=== PATIENT | male | born 1950 | race Hispanic/Latino ===

== ENCOUNTER 2016-12-18 05:35 | Inpatient (IN) | payer MEDICARE ==
--- NOTE | 2016-12-17 10:37 | Anesthesia Consultation ---
Anesthesia Consult and Med Hx Date of service: 12/17/16 - Airway Anesthetic Teeth Evaluation: Dentures (upper and lower) ROM Head & Neck: Adequate Mental/Hyoid Distance: Adequate Mallampati Class: Class II Intubation Access Assessment: Probably Good - Pulmonary Exam CTA: Yes - Cardiac Exam Cardiac Exam: RRR - Pre-Operative Health Status ASA Pre-Surgery Classification: ASA3 Proposed Anesthetic Plan: General - Pulmonary Hx Smoking: Yes (former) Hx Asthma: No COPD: No Hx Pneumonia: No - Cardiovascular System Hx Hypertension: Yes Hx Heart Attack/AMI: No Hx Pacemaker: No Hx Internal Defibrillator: No - Central Nervous System Hx Seizures: Yes ( 08/2016) 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
[2016-12-17 11:00] LABS: Hematocrit 41.2 % (35.5-45.6); Mean Corpuscular HGB Conc 34 % (32-34); Mean Corpuscular Hemoglobin 30 pg (28-32); Mean Corpuscular Volume 88 fl (84-94); Platelet Count 219 K/mm3 (140-440); Red Blood Count 4.66 M/mm3 (3.65-5.03); Red Cell Distribution Width 13.2 % (13.2-15.2); White Blood Count 7.6 K/mm3 (4.5-11.0)
[2016-12-18] MEDS ORDERED: NACL 0.9% 1000 ML 1,000 ML IV SCH ×2 (06:00→12:00)
[2016-12-18] MEDS ORDERED: ANCEF/STERILE WATER 2 GM/20 ML 2 GM/20 ML SYRINGE IV NR (06:00)
[2016-12-18] MEDS ORDERED: NACL BACTERIOSTATIC INFILTRATI ONE (06:28)
[2016-12-18] MEDS ORDERED: AMIDATE IV ONE (07:21)
[2016-12-18] MEDS ORDERED: XYLOCAINE MPF 2% ONE (07:21)
[2016-12-18] MEDS ORDERED: ZEMURON IV ONE ×2 (07:21→09:57)
[2016-12-18] MEDS ORDERED: DIPRIVAN 10 MG/ML IV ONE ×6 (07:23→10:37)
[2016-12-18] MEDS ORDERED: SUBLIMAZE ONE ×2 (07:23→09:51)
[2016-12-18] MEDS ORDERED: KEPPRA PO ONE (07:30)
[2016-12-18] MEDS ORDERED: XYLOCAINE 1% 20 mL ONE (07:37)
[2016-12-18] MEDS ORDERED: NACL 0.9% 500 ML 500 ML ONE (07:40)
[2016-12-18] MEDS ORDERED: PROTAMINE SULFATE ONE (07:40)
[2016-12-18] MEDS ORDERED: MARCAINE 0.25% INFILTRATI ONE ×3 (07:40→11:25)
[2016-12-18] MEDS ORDERED: HEPARIN 10,000 UNITS/10 ML ONE (07:40)
[2016-12-18] MEDS ORDERED: PAPAVERINE ONE (07:40)
[2016-12-18] MEDS ORDERED: XYLOCAINE 1% MPF 5 mL ONE (07:52)
[2016-12-18] MEDS ORDERED: VERSED IV NR (08:00)
[2016-12-18] MEDS ORDERED: ePHEDrine SULFATE ONE (08:23)
[2016-12-18] MEDS ORDERED: HEPARIN 10,000 UNITS/10 ML 2,000 UNIT in NACL 0.9% 500 ML 500 ML IR ONE (09:13)
[2016-12-18] MEDS ORDERED: NACL 0.9% IR ONE (09:13)
[2016-12-18] MEDS ORDERED: ROBINUL ONE ×2 (09:52→12:21)
--- NOTE | 2016-12-18 10:14 | Admit Criteria Form ---
Admission Criteria Documentation: AMBULATORY SURGERY EXCEPTION CRITERIA Ambulatory Surgery Exception Criteria ( Place 'X' for any and all applicable criteria): Surgery or procedure performed on ambulatory basis may require inpatient stay for[A] ANY ONE of the following(1)(2)(3)(4)(5)(6)(7)(8)(9): [X] I. A preoperative situation, condition, or finding that warrants inpatient stay as indicated by ANY ONE of the following: [] a) Inpatient care needed because of severity of a disease or condition rather than the surgery (eg, severe cardiac or respiratory disease, severe infection) (15) (16 ) (17) (18) [] b) Emergent procedure (eg, angioplasty for acute ischemia)(19) [] c) Complex surgical approach or situation as indicated by ANY ONE of the following(3): [] i) Open approach needed instead of usual endoscopic, transcatheter, or other less invasive procedure [] ii) Difficult approach because of previous operation [] iii) Airway monitoring required after open neck procedures(20)(21) [] iv) Large mass requiring unusually extensive dissection [] v) Additional complicating feature requiring inpatient care (eg, drain management)(22(23): [X] d) Major surgery in a pt with high anesthetic risk as indicated by ANY ONE of the following (2)(3)(5)(7)(8): [X] i) ASA risk class III or higher (severe systemic disease impairing function) [D] [] ii) Advanced age (eg, older than 85 years)(14)(24) [] iii) Symptomatic heart failure(25) [] iv) Symptomatic asthma or COPD(8)(21) [] v) Morbid obesity with hemodynamic or respiratory problems(20)( 21)(26)(27) [] vi) Obstructive sleep apnea(20)(21) [] vii) Former premature infants who are younger than 60 weeks [] viii) High risk for severe postoperative abnormalities (eg, severe postoperative hypocalcemia after parathyroidectomy for severe hyperparathyroidism)(27)( 28) [] ix) Unstable angina(25) [] e) Drug-related risk requiring inpatient stay as indicated by ANY ONE of the following(5)(10)(14)(32)(33) [] i) Procedure requires discontinuing drugs or other therapy (eg , antiarrhythmic medication, antiseizure medication), which necessitates inpatient observation or treatment.(18)(31) [] ii) Major surgery and high risk drug use as indicated by ANY ONE of the following: [] 1) Active abuse of cocaine or similar drug [] 2) Monoamine oxidase inhibitor use [] 3) Other drug identified as posing risk [] f) Inadequate outpatient care situation as indicated by ANY ONE of the following(5)(10)(14)(32)(33) [] i) Patient lives remote from medical facility and procedure has urgent complication potential, and temporary nearby residence cannot be arranged [] ii) Patient will have postprocedure incapacitation and inadequate assistance at home, or alternative level of care cannot be arranged. [] iii) Patient will have long general anesthesia or procedure side effect resolution time, and competent person to stay with patient on first postoperative night at home or alternative level of care cannot be arranged. []iv) Other inadequate outpatient situation that cannot be handled by other means [] II. A perioperative event, condition, or finding that warrants inpatient stay as indicated by ANY ONE of the following (1)(2)(3): [] a) Inadequate physiologic recovery: cardiovascular, respiratory, or hemodynamic status not normal or near preoperative baseline(18) [] b) Hemodynamic instability [] c) Patient not alert with near normal or baseline mental status [] d) Temperature not normal or as expected and not appropriate for outpatient treatment of condition [] e) Ambulatory or appropriate activity level status not yet achieved post procedure [E](34)(35)(36) [] f) Operative site not appropriate (eg, unexpected or excessive drainage or bleeding) [] g) Postoperative effects not resolved or adequately managed (eg, significant pain or vomiting not appropriate for outpatient or next level of care)(10)(12) [] h) Complicating features requiring inpatient care as indicated by ANY ONE of the following(37): [] i) Severe complications of procedure (eg, bowel injury, airway compromise, vascular injury,severe hemorrhage) [] ii) Extensive (eg, dissection far beyond usual scope of procedure ) or prolonged (eg, 120 minutes beyond usual) surgery needed requiring inpatient postoperative care [] iii) Conversion to an open or complex procedure that requires inpatient care (eg, open vs laparoscopic cholecystectomy, abdominal vs vaginal hysterectomy)(38) [] iv) Comorbid condition or test result identified during or post procedure that requires inpatient care (7) [] v) Malignant hyperthermia(30) [] vi) Other complicating feature requiring inpatient care(22)(23) Inpatient stay may be needed until ALL of the following are present (1)(2)(3)(4) (5)(6)(10)(14)(33)(40): []a) Physiologic recovery: cardiovascular, respiratory, and hemodynamic status normal or near preoperative baseline []b) Hemodynamic stability []c) Patient alert, with near normal or baseline mental status []d) Temperature appropriate: patient afebrile or temperature appropriate for outpt treatment of condition []e) Activity level appropriate: ambulatory or appropriate activity level post procedure []f) Operative site appropriate as indicated by ALL of the following: []i) Site dry or with expected drainage []ii) Any blood noted is as expected for procedure. []g) Postoperative effects resolved or managed as indicated by ALL of the following: []i) Pain management appropriate for outpatient (or next level of) care(10) []ii) Minimal nausea and vomiting: if present, successfully treated with oral medication(12) []iii) Headache, dizziness, or drowsiness (if present) are mild. []h) Voiding status acceptable as indicated by ANY ONE of the following: []i) Voiding spontaneously []ii) No voiding but instructions given for follow-up in 6 to 8 hours []iii) Urinary catheter in place, and instructions given for follow-up []i) Complicating features requiring inpatient care manageable at a lower level of care(37) []j) Comorbid conditions manageable at a lower level of care(37) The original [employer] content created by [employer] has been revised. The portions of the content which have been revised are identified through the use of italic text or in bold, and [facility] [employer] has neither reviewed nor approved the modified material. All other unmodified content is copyright [employer]. Please see references footnoted in the original [employer] edition 2016 Admission Criteria Met: Yes
[2016-12-18] MEDS ORDERED: ZOFRAN ONE (11:33)
--- NOTE | 2016-12-18 11:55 | Operative Report ---
Operative Report Operative Report: Date of procedure: 12/18/2016 Pre-operative diagnosis: left internal carotid artery stenosis Post-operative diagnosis: Same Procedure name(s): 1. Left carotid endarterectomy with bovine pericardial patch angioplasty 2. Completion duplex ultrasound Surgeon: Ayaan Aguilar MD, RPVI Lapidary Apprentice: FEDE Barth Anesthesia: Gen. EEG and SSEP's monitoring Findings 1. High grade long left ICA stenosis. 2. Necrotic ulcerated lesion with combination of altered fresh thrombus. 3. EEGs and SSEPs remained stable throughout the entire procedure with no changes. 4. Complete resolution of the stenosis was normalization of ICA velocity. 5. No loose debris or intimal flap on the completion duplex. 6. Patient woke up moving all 4 extremities. Specimens: Carotid plaque EBL: 125 mL Drains: #10 CHELITA drain in the left neck. IV fluids: 1250 mL Urine output: 275 mL Disposition: The recovery Indications: Left ICA stenosis Patient was brought to the operating room and laid on the operating room table in supine position. After general endotracheal anesthesia was achieved and EEG leads placed patient was positioned for the left carotid endarterectomy. Patient was prepped and draped in usual sterile fashion. An incision along the sternocleidomastoid muscle was made using #15 blade. Subcutaneous tissue was divided with Bovie electrocautery. The platysma was divided with Bovie electrocautery. The external jugular vein was divided between 2-0 silk ties. The sternocleidomastoid muscle was dissected and retracted laterally. The internal jugular vein was dissected the facial vein was divided between 3-0 silk ties and it was retracted laterally. The common carotid artery was dissected free and encircled with a Eyad tourniquet. The dissection continued cephalad. The superior thyroid and external carotid arteries were dissected free and encircled with 2-0 silk tie and small vessel loop respectively. The internal carotid artery was dissected distal to the stenosis and encircled with a vessel loop. Patient received 6000 units of heparin. After 3 minutes the vessels were occluded. The internal carotid artery was occluded first. There were no changes in the EEG is after 3 minutes The endarterectomy was performed using a [place] elevator. At the distal end of the arteriotomy that appeared that the plaque didn't end. The internal carotid artery was dissected further distally and the posterior belly of the digastric muscle had to be divided. The internal carotid was opened further and plaque was then traced up higher. A long portion of the internal carotid artery appeared to have plaque in it. Finally we reached a point where the plaque could be transected and the adequate lumen was seen. The plaque was removed in its entirety. The loose intima was picked off using forceps. The endarterectomy site was irrigated with heparinized saline and no intimal flaps were noted. The endarterectomy site was closed using a bovine pericardial patch and 6-0 Prolene running suture. Prior to the completion of all the patch the backbleeding maneuvers were performed. Brisk back bleeding was seen from all the vessels. The patch was completed expeditiously . The clamps were removed the internal carotid clamp was removed last. There were no changes on EEG monitoring. Given the amount of dissection and the longevity of the patch we decided to put a #10 flat CHELITA drain through a separate stab incision. The hemostasis was adequate and no significant bleeding was seen from the patch. The pressures during the surgery was maintained at about 170. No bleeding was seen. Postoperative ultrasound was performed, please see findings for details. After the ultrasound, the wound was closed using 3-0 Vicryl platysmal layer and 4-0 Monocryl subcuticular closure. The skin was infiltrated with Marcaine for postop pain. Patient tolerated procedure well. He awoke neurologically intact. He was transferred to recovery room.
[2016-12-18] MEDS ORDERED: MORPHINE IV PRN ×2 (11:59)
[2016-12-18] MEDS ORDERED: NORCO 5/325 PO PRN (11:59)
[2016-12-18] MEDS ORDERED: NORMODYNE IV ONE (12:21)
[2016-12-18] MEDS ORDERED: NEOSTIGMINE ONE (12:21)
[2016-12-18] MEDS ORDERED: INTROPIN DRIP 800 MG/D5W 250 ML 800 MG/250 ML BAG IV SCH (13:00)
[2016-12-18] MEDS ORDERED: NIPRIDE 50 MG in D5W 248 ML IV SCH (14:00)
[2016-12-18] MEDS ORDERED: ANCEF/NS 1 GM/50 ML 1 GM/50 ML BAG IV SCH (14:00)
[2016-12-18] MEDS ORDERED: TYLENOL PO ONE (14:30)
[2016-12-18 15:53] LABS: Basophils % (Auto) 0.6 % (0.0-1.8); Eosinophils % (Auto) 0.5 % (0.0-4.3); Hemoglobin 12.1 gm/dl (11.8-15.2); Mean Corpuscular HGB Conc 33 % (32-34); Mean Corpuscular Hemoglobin 30 pg (28-32); Mean Corpuscular Volume 90 fl (84-94); Platelet Count 181 K/mm3 (140-440); Red Blood Count 4.02 M/mm3 (3.65-5.03); Red Cell Distribution Width 13.1 % (13.2-15.2); White Blood Count 11.3 K/mm3 (4.5-11.0)
[2016-12-18] MEDS: ANCEF/NS 1 GM/50 ML 1 GM/50 ML BAG IV SCH (16:01)
[2016-12-18 16:03] LABS: INR 1.01 (0.87-1.13)
[2016-12-18 16:10] LABS: Anion Gap 18 mmol/L; BUN/Creatinine Ratio 11.81; Blood Urea Nitrogen 13 mg/dL (9-20); Calcium 8.5 mg/dL (8.4-10.2); Carbon Dioxide 22 mmol/L (22-30); Chloride 106.7 mmol/L (98-107); Glucose 102 mg/dL (75-100); Potassium 4.5 mmol/L (3.6-5.0); Sodium 142 mmol/L (137-145)
--- NOTE | 2016-12-18 16:19 | Post Anesthesia Evaluation ---
- Post Anesthesia Evaluation Patient Participated: Yes Airway Patent: Yes Stable Respiratory Function: Yes Temp > 96.8F: Yes Pain Manageable: Yes Adequeate Hydration: Yes Anesthesia Complications: No Block Receding Appropriately: Not Applicable
[2016-12-18] MEDS: KEPPRA PO SCH (21:55)
[2016-12-18] MEDS: COLACE PO SCH (21:55)
[2016-12-18] MEDS ORDERED: NON-FORMULARY (Levetiracetam [Keppra Tab] 750 MG) PO SCH (22:00)
[2016-12-19] MEDS: ANCEF/NS 1 GM/50 ML 1 GM/50 ML BAG IV SCH (00:06)
[2016-12-19] MEDS: COLACE PO SCH (09:40)
[2016-12-19] MEDS: KEPPRA PO SCH (09:40)
[2016-12-19 09:44] VITALS: BP 129/63
[2016-12-19] MEDS ORDERED: NON-FORMULARY (Lisinopril [Zestril Tab] 2.5 MG) PO SCH (10:00)
[2016-12-19] MEDS ORDERED: PROzac PO SCH (10:00)
[2016-12-19] MEDS ORDERED: PLAVIX PO SCH (10:00)
[2016-12-19] MEDS ORDERED: ASPIRIN PO SCH (10:00)
[2016-12-19] MEDS ORDERED: ZESTRIL PO SCH (10:00)
--- NOTE | 2016-12-19 10:54 | Progress Note ---
Assessment and Plan Pt doing well post op. Chelita drain removed. Bandaged placed D/c instructions given to the pt and family at the bedside. Rx: resume home meds and new rx for [place]. - Patient Problems (1) Carotid stenosis, left Current Visit: Yes Status: Acute Subjective Date of service: 12/19/16 Interval history: Pt awake and alert. Denies complaint at present. Objective - Constitutional Vitals: Vital Signs - 12hr 12/18/16 12/19/16 12/19/16 23:00 00:00 01:00 Temperature 97.8 F 97.8 F 98.4 F Pulse Rate 74 73 67 Respiratory 15 18 18 Rate Respiratory Rate [Left Neck ] Blood Pressure 125/74 139/78 132/87 O2 Sat by Pulse 97 94 93 Oximetry 12/19/16 12/19/16 12/19/16 02:00 03:00 04:00 Temperature 98.4 F 99 F Pulse Rate 72 69 76 Respiratory 18 22 16 Rate Respiratory Rate [Left Neck ] Blood Pressure 141/65 159/72 146/70 O2 Sat by Pulse 94 97 96 Oximetry 12/19/16 12/19/16 12/19/16 04:15 04:45 06:00 Temperature 99 F Pulse Rate 71 Respiratory 16 16 16 Rate Respiratory 16 Rate [Left Neck ] Blood Pressure 140/65 O2 Sat by Pulse 97 Oximetry 12/19/16 09:00 Temperature Pulse Rate 76 Respiratory Rate Respiratory Rate [Left Neck ] Blood Pressure 129/63 O2 Sat by Pulse Oximetry General appearance: Present: no acute distress - EENT Eyes: EOM intact ENT: hearing intact - Neck Neck: supple (min appreciable swelling , no erythema , incision intact, no drainage, CHELITA with about 5ml of serosanginous drainage since earlier this am.) - Respiratory Respiratory effort: normal Extremities: no ischemia - Neurologic Neurologic: moves all extremities (assembler billiard table strength equal and adequate, tongue pulls to the left), other (mild expressive aphasia, and tremor to rue ( unchanged post-op). ) - Psychiatric Psychiatric: appropriate mood/affect, intact judgment & insight, cooperative - Labs CBC & Chem 7: 12/18/16 15:15 12/18/16 15:15 Labs: Abnormal lab results 12/18/16 12/18/16 12/18/16 Range/Units 09:34 15:15 15:15 WBC 11.3 H (4.5-11.0) K/mm3 RDW 13.1 L (13.2-15.2) % Lymph % (Auto) 9.8 L (13.4-35.0) % Williamson % (Auto) 7.5 H (0.0-7.3) % Lymph # 1.1 L (1.2-5.4) K/mm3 Williamson # 0.9 H (0.0-0.8) K/mm3 Seg Neutrophils % 81.6 H (40.0-70.0) % Seg Neutrophils # 9.2 H (1.8-7.7) K/mm3 Activated Clotting Time 213 H (74-137) Glucose 102 H (75-100) mg/dL
--- NOTE | 2016-12-19 10:59 | Short Stay Summary ---
Short Stay Documentation Date of service: 12/19/16 - History H&P: obtained from office - Allergies and Medications Current Medications: Allergies No Known Allergies Allergy (Verified 12/16/16 17:25) Home Medications Medication Instructions Recorded Confirmed Last Taken Type Aspirin [Aspirin TAB] 325 mg PO QDAY 09/18/16 12/18/16 12/17/16 History AtorvaSTATin [Lipitor] 40 mg PO DAILY 09/18/16 12/18/16 12/17/16 History Clopidogrel [Plavix] 75 mg PO QDAY 09/18/16 12/18/16 12/18/16 05:00 History FLUoxetine [PROzac] 20 mg PO QDAY 09/18/16 12/18/16 12/17/16 History Lisinopril [Zestril TAB] 2.5 mg PO QDAY 09/18/16 12/18/16 12/18/16 05:00 History Valproic Acid [DepaKENE] 250 mg PO BID 09/18/16 12/18/16 12/17/16 20:00 History levETIRAcetam [Keppra TAB] 750 mg PO BID 09/18/16 12/18/16 12/17/16 20:00 History Active Medications Acetaminophen/Hydrocodone Bitart ([place] 5/325) 1 each PO Q6H PRN PRN Reason: Pain, Moderate (4-6) Aspirin (Aspirin) 325 mg PO QDAY [facility] Last Admin: 12/19/16 09:36 Dose: 325 mg Atorvastatin Calcium (Lipitor) 40 mg PO HS [facility] Clopidogrel Bisulfate (Plavix) 75 mg PO QDAY [facility] Last Admin: 12/19/16 09:36 Dose: 75 mg Docusate Sodium (Colace) 100 mg PO BID [facility] Last Admin: 12/19/16 09:40 Dose: 100 mg Fluoxetine HCl (Prozac) 20 mg PO QDAY [facility] Last Admin: 12/19/16 09:36 Dose: 20 mg Dopamine HCl/Dextrose (Intropin Drip 800 Mg/D5w 250 Ml) 800 mg in 250 mls @ 3.011 mls/hr IV TITR RADHA; 2 MCG/KG/MIN PRN Reason: Protocol Sodium Nitroprusside 50 mg/ (Dextrose) 250 mls @ 6.02 mls/hr IV TITR RADHA; 0.25 MCG/KG/MIN PRN Reason: Protocol Sodium Chloride (Nacl 0.9% 1000 Ml) 1,000 mls @ 100 mls/hr IV DIRECT [facility] Last Admin: 12/19/16 04:26 Dose: 100 mls/hr Levetiracetam (Keppra) 750 mg PO BID [facility] Last Admin: 12/19/16 09:40 Dose: 750 mg Lisinopril (Zestril) 2.5 mg PO QDAY [facility] Last Admin: 12/19/16 09:00 Dose: 2.5 mg Morphine Sulfate (Morphine) 2 mg IV Q4H PRN PRN Reason: Pain, Moderate (4-6) Morphine Sulfate (Morphine) 4 mg IV Q4H PRN PRN Reason: Pain , Severe (7-10) Last Admin: 12/19/16 04:15 Dose: 4 mg Valproic Acid (Depakene) 250 mg PO BID [facility] Last Admin: 12/19/16 09:36 Dose: 250 mg - Physical exam Extremities: no ischemia - Brief post op/procedure progress note Procedure: Operative Report Operative Report: Date of procedure: 12/18/2016 Pre-operative diagnosis: left internal carotid artery stenosis Post-operative diagnosis: Same Procedure name(s): 1. Left carotid endarterectomy with bovine pericardial patch angioplasty 2. Completion duplex ultrasound Surgeon: Ayaan Aguilar MD, RPVI [employer]: FEDE Barth Anesthesia: Gen. EEG and SSEP's monitoring Findings 1. High grade long left ICA stenosis. 2. Necrotic ulcerated lesion with combination of altered fresh thrombus. 3. EEGs and SSEPs remained stable throughout the entire procedure with no changes. 4. Complete resolution of the stenosis was normalization of ICA velocity. 5. No loose debris or intimal flap on the completion duplex. 6. Patient woke up moving all 4 extremities. Specimens: Carotid plaque EBL: 125 mL Drains: #10 CHELITA drain in the left neck. IV fluids: 1250 mL Urine output: 275 mL Disposition: The recovery Indications: Left ICA stenosis - Disposition Condition at discharge: Good Disposition: DC-01 TO HOME OR SELFCARE - Discharge Diagnoses (1) Carotid stenosis, left Status: Acute Short Stay Discharge Plan Activity: advance as tolerated Weight Bearing Status: Weight Bear as Tolerated Diet: regular Wound: keep clean and dry, remove dressing (after 48hrs, then okay to shower.) Additional Instructions: ACTIVITY : ADVANCE TOLERATED. DO NOT BEND OVER . DO NOT OVER EXERT YOURSELF . NO SWIMMING OR SOAKING IN ANY VELIZ. YOU MAY SHOWER AFTER 48 HOURS. NO DRIVING UNTIL YOU SEE THE SURGICAL DOCTORS . WOUND: KEEP CLEAN AND DRY. CALL DR AGUILAR'S OFFICE IF THERE IS SWELLING , REDNESS OR DRAINAGE TO SURGICAL SITE.IF THERE IS SUPER LARGE SWELLING CALL [address]. [address] AGUILAR'S OFFICE IF YOU ARE HAVINGA FEVER OVER 100 DEGREES APPOINTMENT: DR AGUILAR WANTS TO SEE YOU IN 14 DAYS- CALL FOR APPOINTMENT AND FOR ANY QUESTIONS OR CONCERNS RELATED TO PROCEDURE . PRESCRIPTIONS GIVEN FOR PAIN TAKE DIRECTED. Follow up with: AYAAN AGUILAR MD [Staff Physician] - 14 Days Forms: Outpatient Surgery DC Inst. Prescriptions: HYDROcodone/APAP 7.5-325 [[place] 7.5/325] 1 each PO Q6HR PRN #20 tablet PRN Reason: Pain
--- NOTE | 2016-12-20 07:08 | Vascular Lab Report ---
INTRAOPERATIVE CAROTID ARTERY DUPLEX Reason for exam: Completion of carotid endarterectomy Comments on the left: The common and internal carotid arteries are patent without evidence of intraluminal irregularities. Flow velocities appear to be appropriate. No obvious technical defects at the endarterectomy site appreciated. Impression: No obvious technical imperfections at the endarterectomy site.
== END 2016-12-19 12:26 | disposition home or self-care (01) | DRG 39 ==
LOC: 3A 05:35 → CC1 16:48
PROVIDERS: ADMIT Surgery Vascular Surgery; ATTEND Surgery Vascular Surgery
PROC: 03CL0ZZ Extirpation of Matter from Left Internal Carotid Artery, Open Approach (ICD-10-PCS; principal; 2016-12-18)
PROC: 03UL0JZ Supplement Left Internal Carotid Artery with Synthetic Substitute, Open Approach (ICD-10-PCS; 2016-12-18)
DX: I65.23 Occlusion and stenosis of bilateral carotid arteries (principal); Z83.3 Family history of diabetes mellitus; Z80.9 Family history of malignant neoplasm, unspecified
CPT/HCPCS: 36415; 36620; 80048; 85025; 85027; 85347; 85610; 86850; 86900; 86901; 88304; 88311; A9270-GY; C1768; C9250; J0690; J1265; J1644; J2250; J2270; J2405; J2440; J2704; J2710; J2720; J3010; J7030; J7040